=== PATIENT | female | born 1995 ===

== ENCOUNTER 2022-02-14 04:04 | Inpatient (IN) | payer SELFPAY ==
[2022-02-14] MEDS ORDERED: Sodium Chloride 0.9% 10 ML Syringe FLUSH PRN (07:20)
[2022-02-14] MEDS ORDERED: Nalbuphine HCl 10 MG/ 1ML Amp IVPUSH PRN (07:20)
[2022-02-14] MEDS ORDERED: Acetaminophen 325 MG Tab PO PRN (07:20)
[2022-02-14] MEDS ORDERED: Oxytocin/Lactated Ringers 10 UNIT/1,000 ML BAG IV SCH (07:30)
[2022-02-14] MEDS: Lactated Ringers 1,000 ML IV SCH ×3 (08:17→16:28)
[2022-02-14] MEDS: Oxytocin/Lactated Ringers 10 UNIT/1,000 ML BAG IV SCH ×2 (08:17→21:45)
[2022-02-14] MEDS: Sodium Chloride 0.9% 10 ML Syringe FLUSH SCH (10:04)
[2022-02-14] MEDS ORDERED: fentaNYL 100 MCG/2 ML SDV EPIDUR PRN (12:21)
[2022-02-14] MEDS ORDERED: ePHEDrine 50 MG/ML SDV IVPUSH PRN (12:21)
[2022-02-14] MEDS ORDERED: diphenhydrAMINE 50 MG/ML SDV IVPUSH PRN (12:21)
[2022-02-14] MEDS: Bupivacaine/fentaNYL/NS 100 ML Bag EPIDUR PRN ×2 (16:01→23:20)
[2022-02-15] MEDS ORDERED: Bupivacaine 0.25% 10 ML SDV ONE
[2022-02-15] MEDS: Lactated Ringers 1,000 ML IV SCH (01:01)
[2022-02-15] MEDS ORDERED: Benzocaine/Menthol 20%-0.5% Spray 78 GM Cannister TOP PRN (05:13)
[2022-02-15] MEDS ORDERED: Hydrocortisone Acetate 25 MG Supp RECTAL PRN (05:13)
[2022-02-15] MEDS ORDERED: Witch Hazel Medicated Pads 40/Jar TOP PRN (05:13)
[2022-02-15] MEDS ORDERED: Ibuprofen 600 MG Tab PO PRN (05:13)
[2022-02-15] MEDS ORDERED: Oxytocin/Lactated Ringers 10 UNIT/1,000 ML BAG IV SCH (05:13)
[2022-02-15] MEDS ORDERED: Acetaminophen 325 MG Tab PO PRN (05:13)
[2022-02-15] MEDS ORDERED: Magnesium Hydroxide 400 MG/5 ML Susp 30 ML Cup PO PRN (05:13)
[2022-02-15] MEDS ORDERED: Docusate Sodium 100 MG Cap PO PRN (05:13)
[2022-02-15] MEDS ORDERED: Ferrous Sulfate 324 MG Tab.EC PO SCH (07:00)
[2022-02-15] MEDS ORDERED: Prenatal Multivitamin with Calcium/Folic Acid/Iron Tab PO SCH (09:00)
[2022-02-15] MEDS ORDERED: Lactated Ringers 1,000 ML IV ONE (09:04)
[2022-02-15] MEDS: Sodium Chloride 0.9% 10 ML Syringe FLUSH SCH (09:29)
[2022-02-15 11:33] VITALS: BP 139/71; PULSE 90
== END 2022-02-15 12:15 | disposition home or self-care (01) | DRG 807 ==
LOC: JD.OB 04:04 → OBSVTOIN 02-15 04:04 → JD.OB 02-15 04:05
PROVIDERS: ADMIT Obstetrics & Gynecology; ATTEND Obstetrics & Gynecology
PROC: 10D07Z6 Extraction of Products of Conception, Vacuum, Via Natural or Artificial Opening (ICD-10-PCS; principal; 2022-02-15)
PROC: 10907ZC Drainage of Amniotic Fluid, Therapeutic from Products of Conception, Via Natural or Artificial Opening (ICD-10-PCS; 2022-02-15)
PROC: 3E033VJ Introduction of Other Hormone into Peripheral Vein, Percutaneous Approach (ICD-10-PCS; 2022-02-15)
PROC: 10907ZC Drainage of Amniotic Fluid, Therapeutic from Products of Conception, Via Natural or Artificial Opening (ICD-10-PCS; 2022-02-15)
PROC: 3E0R3BZ Introduction of Anesthetic Agent into Spinal Canal, Percutaneous Approach (ICD-10-PCS; 2022-02-15)
PROC: 0HQ9XZZ Repair Perineum Skin, External Approach (ICD-10-PCS; 2022-02-15)
DX: O77.0 Labor and delivery complicated by meconium in amniotic fluid (principal); Z37.0 Single live birth; Z3A.39 39 weeks gestation of pregnancy; Z33.3 Pregnant state, gestational carrier; O70.0 First degree perineal laceration during delivery; O66.0 Obstructed labor due to shoulder dystocia
CPT/HCPCS: 01967; 36415; 51701; 51702; 59025; 59409; 80053; 85025; 86592; A9270-GY; J2590; J3010; J3490; J7120

== ENCOUNTER 2022-03-22 18:32 | Emergency (ER) | payer BC ==
[2022-03-22 18:52] VITALS: BP 120/76; PULSE 75
== END 2022-03-22 19:35 | disposition home or self-care (01) ==
LOC: SUPCPDRO 18:32 → JD.ED 18:32
DX: N81.9 Female genital prolapse, unspecified (principal); Z79.899 Other long term (current) drug therapy
CPT/HCPCS: 99283